=== PATIENT | male | born 1995 | race Hispanic/Latino ===

== ENCOUNTER 2023-01-04 06:29 | Emergency (ER) | payer OTHER ==
[~2023-01-04] VITALS: Ht 188 cm; Wt 118.2 kg
[2023-01-04 06:36] VITALS: BP 150/82
[2023-01-04 06:46] VITALS: BP 143/77
[2023-01-04 07:00] VITALS: BP 139/65
[2023-01-04 07:15] VITALS: BP 134/72
[2023-01-04] MEDS ORDERED: FLEXERIL5 M1 PO (08:07)
[2023-01-04] MEDS ORDERED: MOTRIN400 MG/TAB PO (08:07)
[2023-01-04 08:31] VITALS: BP 150/91
== END 2023-01-04 08:30 | disposition home or self-care (01) | DRG 552 ==
LOC: ED 06:29
DX: M54.2 Cervicalgia (principal); M54.9 Dorsalgia, unspecified; V49.50XA Passenger injured in collision with unspecified motor vehicles in traffic accident, initial encounter